=== PATIENT | male | born 1935 | race Caucasian/White ===

== ENCOUNTER 2019-08-07 11:43 | Inpatient (IN) ==
[2019-08-07] MEDS ORDERED: ALBUTEROL 2.5 MG/3 ML NEB RESP TX PRN (13:29)
[2019-08-07] MEDS ORDERED: ACETAMINOPHEN 325 MG TABLET PO PRN (13:29)
[2019-08-07] MEDS ORDERED: PANTOPRAZOLE 40 MG VIAL IV SCH (13:30)
[2019-08-07] MEDS: SODIUM CHLORIDE 0.9% 1,000 ML IV SCH (13:54)
[2019-08-07] MEDS ORDERED: dilTIAZem Drip 125 MG/125 ML PREMIX IV SCH (14:00)
[2019-08-07] MEDS ORDERED: HEPARIN DRIP 25,000 UNITS/500 ML PREMIX IV SCH ×3 (14:00→18:30)
[2019-08-07 14:51] LABS: ABG Base Excess -4.5 MMOL/L (-2.5-2.5); ABG HCO3 20.7 MMOL/L (20-26); ABG PCO2 23.8 MM HG (35-48); ABG PH 7.466 (7.35-7.45); ABG PO2 66.9 MM HG (80-95); ABG TCO2 14.4 MMOL/L (23-27); Allen Test Positive
[2019-08-07 15:16] LABS: INR 1.2; PT Patient Result 12.7 SECS (9.6-12.2)
[2019-08-07] MEDS ORDERED: ALTEPLASE 6 MG in SODIUM CHLORIDE 0.9% 120 ML IV SCH (17:00)
[2019-08-07] MEDS ORDERED: MIDAZOLAM 2 MG/2 ML VIAL ONE (17:06)
[2019-08-07] MEDS ORDERED: fentaNYL 100 MCG/2 ML VIAL ONE (17:06)
[2019-08-07] MEDS ORDERED: LIDOCAINE 1% 20 ML VIAL ONE (17:07)
[2019-08-07] MEDS ORDERED: SODIUM CHLORIDE 0.9% 1,000 ML IV SCH ×2 (19:00)
[2019-08-07 19:53] LABS: INR 1.1; PT Patient Result 12.1 SECS (9.6-12.2)
[2019-08-07 20:04] LABS: Partial Thromboplastin Time 81.1 SECS (20.8-36.0)
[2019-08-07] MEDS: APIXABAN 5 MG TABLET PO SCH (21:52)
[2019-08-07 23:53] LABS: Apearance,Urine CLEAR (Clear); Bilirubin,Urine Negative (Negative); Blood, Urine Small mg/dL (Negative); Glucose,Urine (UA) Negative (Negative); Hyaline Casts,Urine 19 /LPF (0-3); Ketones,Urine 20 mg/dL (Negative); Mucus,Urine Few /LPF (Occasional); Nitrite,Urine Negative (Negative); Protein,Urine 100 MG/DL; RBC,Urine 4 /HPF (0-4); Squamous Epithelial Cell,Urine Occasional /HPF (0-10); Urine Color Amber (Yellow); Urine Specific Gravity 1.048 (1.001-1.035); WBC,Urine 5 /HPF (0-6)
[2019-08-08] MEDS: LORazepam 2 MG/1 ML VIAL IV PRN ×2 (00:47→12:20)
[2019-08-08] MEDS: SODIUM CHLORIDE 0.9% 1,000 ML IV SCH ×2 (02:33→15:54)
[2019-08-08 05:04] LABS: Basophils % 0.2 % (0.0-0.8); Eosinophils % 0.4 % (0.00-10.9); Hematocrit 39.8 VOL% (42.0-52.0); Hemoglobin 13.1 GM/DL (14.0-18.0); Immature Granulocytes % 0.5 %; Immature Granulocytes Absolute 0.06 #; Lymphocytes # 1.5 10*3/uL (1.4-4.0); Mean Corpuscular HGB Conc 32.9 GM/DL (32-36); Mean Corpuscular Volume 94.1 FL (87-102); Mean Platelet Volume 10.2 FL (9.6-12.0); Neutrophils % 78.9 % (38.7-73.9); Platelet Count 165 T/CUMM (130-400); Red Blood Count 4.23 MC/CUMM (3.8-5.5); Red Cell Distribution Width 13.3 % (9.3-17.3); White Blood Count 11.4 T/CUMM (4-12)
[2019-08-08 05:27] LABS: INR 1.2; PT Patient Result 12.7 SECS (9.6-12.2)
[2019-08-08 05:41] LABS: Albumin 2.4 G/DL (3.4-5.0); Bilirubin,Total 1.8 MG/DL (0.2-1.0); Calcium 7.9 MG/DL (8.5-10.1); Osmolality,Calculated 284.1 MOS/KG (273-304); Total Protein 5.5 G/DL (6.4-8.3)
[2019-08-08 05:43] LABS: Partial Thromboplastin Time 88.1 SECS (20.8-36.0)
[2019-08-08] MEDS: MORPHINE 4 MG/1 ML VIAL IV PRN ×4 (07:34→16:54)
[2019-08-08] MEDS: APIXABAN 5 MG TABLET PO SCH ×2 (08:35→20:36)
[2019-08-08] MEDS: TAMSULOSIN 0.4 MG CAPSULE PO SCH (08:35)
[2019-08-08] MEDS: PANTOPRAZOLE 40 MG TABLET PO SCH (08:45)
[2019-08-08] MEDS ORDERED: MAGNESIUM SULF RIDER 2 GM in PREMIX 1 EACH IV ONE (11:55)
[2019-08-08] MEDS ORDERED: POTASSIUM CHLORIDE 20 MEQ TABLET PO ONE (11:55)
[2019-08-08] MEDS: ONDANSETRON 4 MG/2 ML VIAL IV PRN ×2 (13:43→16:54)
[2019-08-08 19:44] LABS: Partial Thromboplastin Time 28.9 SECS (20.8-36.0)
[2019-08-09] MEDS: SODIUM CHLORIDE 0.9% 1,000 ML IV SCH (05:19)
[2019-08-09 07:51] LABS: Partial Thromboplastin Time 32.2 SECS (20.8-36.0)
[2019-08-09] MEDS: TAMSULOSIN 0.4 MG CAPSULE PO SCH (08:31)
[2019-08-09] MEDS: PANTOPRAZOLE 40 MG TABLET PO SCH (08:31)
[2019-08-09] MEDS: APIXABAN 5 MG TABLET PO SCH ×2 (08:31→20:08)
[2019-08-09] MEDS ORDERED: METOPROLOL SUCCINATE XL 25 MG TABLET PO SCH (09:00)
[2019-08-09] MEDS: MORPHINE 4 MG/1 ML VIAL IV PRN (11:20)
[2019-08-10 04:36] LABS: Basophils % 0.3 % (0.0-0.8); Eosinophils # 0.2 10*3/uL (0.0-0.87); Eosinophils % 1.6 % (0.00-10.9); Hematocrit 40.2 VOL% (42.0-52.0); Hemoglobin 13.1 GM/DL (14.0-18.0); Immature Granulocytes % 0.4 %; Immature Granulocytes Absolute 0.04 #; Lymphocytes # 1.3 10*3/uL (1.4-4.0); Lymphocytes % 13.5 % (21.2-54.2); Mean Corpuscular HGB Conc 32.6 GM/DL (32-36); Mean Corpuscular Volume 94.8 FL (87-102); Mean Platelet Volume 10.9 FL (9.6-12.0); Monocytes % 6.8 % (1.7-12.7); Neutrophils % 77.4 % (38.7-73.9); Platelet Count 178 T/CUMM (130-400); Red Blood Count 4.24 MC/CUMM (3.8-5.5); Red Cell Distribution Width 13.2 % (9.3-17.3); White Blood Count 9.3 T/CUMM (4-12)
[2019-08-10 04:46] LABS: Calcium 8.7 MG/DL (8.5-10.1); Osmolality,Calculated 280.3 MOS/KG (273-304)
[2019-08-10] MEDS ORDERED: METOPROLOL SUCCINATE XL 25 MG TABLET PO SCH (09:00)
[2019-08-10] MEDS: TAMSULOSIN 0.4 MG CAPSULE PO SCH (09:17)
[2019-08-10] MEDS: PANTOPRAZOLE 40 MG TABLET PO SCH (09:17)
[2019-08-10] MEDS: APIXABAN 5 MG TABLET PO SCH (09:17)
[2019-08-10 12:43] VITALS: BP 133/70
== END 2019-08-10 16:22 | disposition home or self-care (01) | DRG 175 ==
LOC: N.CC 13:09 → SUATTDRO 13:09 → N.ICU 13:13 → N.4E 08-09 12:41
PROVIDERS: ADMIT Internal Medicine; ATTEND Internal Medicine

== ENCOUNTER 2021-08-29 11:17 | Observation (INO) ==
[2021-08-29] MEDS ORDERED: SODIUM CHLORIDE 0.9% 1,000 ML IV STA (12:40)
[2021-08-29 12:48] LABS: Basophils % 0.4 % (0.0-0.8); Eosinophils # 0.2 10*3/uL (0.0-0.87); Eosinophils % 1.8 % (0.00-10.9); Hematocrit 51.2 VOL% (42.0-52.0); Hemoglobin 17.2 GM/DL (14.0-18.0); Immature Granulocytes % 0.5 %; Immature Granulocytes Absolute 0.05 #; Lymphocytes # 3.6 10*3/uL (1.4-4.0); Lymphocytes % 38.1 % (21.2-54.2); Mean Corpuscular HGB Conc 33.6 GM/DL (32-36); Mean Platelet Volume 10.2 FL (9.6-12.0); Neutrophils % 51.2 % (38.7-73.9); Platelet Count 251 T/CUMM (130-400); Red Blood Count 5.39 MC/CUMM (3.8-5.5); Red Cell Distribution Width 13.4 % (9.3-17.3); White Blood Count 9.4 T/CUMM (4-12)
[2021-08-29 13:06] LABS: Albumin 3.7 G/DL (3.4-5.0); Bilirubin,Total 0.9 MG/DL (0.20-1.00); Calcium 9.3 MG/DL (8.5-10.1); Osmolality,Calculated 276.7 MOS/KG (273-304); Total Protein 7.3 G/DL (6.4-8.2)
[2021-08-29 13:18] LABS: Thyroid Stimulating Hormone 1.37 uIU/ml (0.358-3.74)
[2021-08-29] MEDS ORDERED: ACETAMINOPHEN 325 MG TABLET PO PRN (15:34)
[2021-08-29] MEDS ORDERED: ONDANSETRON 4 MG/2 ML VIAL IV PRN (15:34)
[2021-08-29] MEDS ORDERED: DEXTROSE 50% 25 GM/50 ML VIAL IV PRN (15:34)
[2021-08-29] MEDS ORDERED: GLUCAGON 1 MG VIAL IM PRN (15:34)
[2021-08-29] MEDS ORDERED: DOCUSATE SODIUM 100 MG CAPSULE PO PRN (15:34)
[2021-08-29] MEDS ORDERED: DEXTROSE 5% NACL 0.9% 1,000 ML IV SCH (16:00)
[2021-08-29] MEDS ORDERED: METOPROLOL TARTRATE 25 MG TABLET PO SCH (21:00)
[2021-08-29] MEDS ORDERED: ENOXAPARIN 30 MG/0.3 ML SYRINGE SUBCUT SCH (21:00)
[2021-08-30 06:34] LABS: Basophils % 0.5 % (0.0-0.8); Eosinophils # 0.2 10*3/uL (0.0-0.87); Eosinophils % 2.9 % (0.00-10.9); Hematocrit 48.1 VOL% (42.0-52.0); Hemoglobin 15.5 GM/DL (14.0-18.0); Immature Granulocytes % 0.3 %; Immature Granulocytes Absolute 0.02 #; Lymphocytes # 2.1 10*3/uL (1.4-4.0); Lymphocytes % 32.2 % (21.2-54.2); Mean Corpuscular HGB Conc 32.2 GM/DL (32-36); Mean Platelet Volume 10.9 FL (9.6-12.0); Monocytes % 8.7 % (1.7-12.7); Neutrophils % 55.4 % (38.7-73.9); Platelet Count 198 T/CUMM (130-400); Red Blood Count 4.96 MC/CUMM (3.8-5.5); Red Cell Distribution Width 13.5 % (9.3-17.3); White Blood Count 6.6 T/CUMM (4-12)
[2021-08-30 07:03] LABS: Bilirubin,Total 1.1 MG/DL (0.20-1.00); Calcium 8.6 MG/DL (8.5-10.1); Osmolality,Calculated 273.7 MOS/KG (273-304); Total Protein 6.2 G/DL (6.4-8.2)
[2021-08-30 08:51] VITALS: BP 125/78
[2021-08-30] MEDS ORDERED: PANTOPRAZOLE 40 MG TABLET PO SCH (09:00)
== END 2021-08-30 12:34 | disposition home or self-care (01) ==
LOC: N.EDINP 11:17 → N.ED 11:17 → N.TELES 16:01
PROVIDERS: ADMIT Internal Medicine; ATTEND Internal Medicine